=== PATIENT | male | born 1970 | race Caucasian/White ===

== ENCOUNTER 2025-05-19 06:20 | Day surgery (SDC) | payer OTHER ==
[~2025-05-19] VITALS: Ht 170.2 cm; Wt 87.6 kg
[2025-05-19] VITALS (11 sets, daily range): BP systolic 122–139; BP diastolic 80–96
[~2025-05-19 06:20] MED LIST: ANAS1 PO; ATOM40 PO; CeFAZolin Sodium 2,000 MG in NS 100 ML IV SCH; DEPO-TESTO200 MG/1 M IM; MULTI-VITAMIN1 EAC2 PO
--- NOTE | 2025-05-19 07:04 | NUR ---
Ambulatory in Day Surgery History, Chart, Medications and Allergies reviewed before start of procedure.Pre-Op teaching done. Pt verbalizes understanding. Patient States Post-Procedure ride home has been arranged.
[2025-05-19] MEDS ORDERED: Bupivacaine 0.5% HCl 5 MG/ML 30MLVIAL ONE (07:12)
[2025-05-19] MEDS ORDERED: Midazolam HCl 1MG / ML 2ML Vial ONE (07:34)
[2025-05-19] MEDS ORDERED: Rocuronium Bromide 10 MG/ML 5ML Injection IV ONE ×2 (07:35→07:57)
[2025-05-19] MEDS ORDERED: Dexamethasone Sod Phos 10 MG/ML 1ML VIAL ONE (07:49)
[2025-05-19] MEDS ORDERED: Ketorolac Tromethamine 30mg Vial ONE (07:49)
[2025-05-19] MEDS ORDERED: Ondansetron HCl 2 MG / ML 2ML Vial ONE (07:49)
[2025-05-19] MEDS ORDERED: FentaNYL Citrate 50 MCG/ML 2 ML Injection ONE (07:56)
[2025-05-19] MEDS ORDERED: Phenylephrine HCl 100 MCG/ML-NS 10MLSYR (1MG/10ML) ONE (08:03)
[2025-05-19] MEDS ORDERED: Sugammadex Sodium 200 MG/2ML SDV (100 MG/ML) ONE (09:24)
--- NOTE | 2025-05-19 11:10 | NUR ---
Discharge instructions reviewed with patient. Patient verbalizes understanding. Copy given to patient to take home. Dressings c/d/i. ABD binder in place. Prescription placed in discharge folder. Patient States Post-Procedure ride home has been arranged. Discharged via wheelchair to private car for ride home.
== END 2025-05-19 11:12 | disposition home or self-care (01) ==
LOC: ORSCMMR 06:20 → ORD 07:30 → ORSCMMR 07:30
PROVIDERS: Student in an Organized Health Care Education/Training Program
PROC: 3E0T3BZ Introduction of Anesthetic Agent into Peripheral Nerves and Plexi, Percutaneous Approach (ICD-10-PCS; principal; 2025-05-19 07:30)
PROC: 0WUF4JZ Supplement Abdominal Wall with Synthetic Substitute, Percutaneous Endoscopic Approach (ICD-10-PCS; principal; 2025-05-19 07:30)
PROC: 8E0W4CZ Robotic Assisted Procedure of Trunk Region, Percutaneous Endoscopic Approach (ICD-10-PCS; principal; 2025-05-19 07:30)
DX: K42.0 Umbilical hernia with obstruction, without gangrene (principal); F90.9 Attention-deficit hyperactivity disorder, unspecified type
CPT/HCPCS: A9270; C1781; J0690; J1100; J1885; J2250; J2371; J2405; J2704; J3010; J7120